=== PATIENT | female | born 1945 | race Caucasian/White ===

== ENCOUNTER 2021-04-09 05:53 | Observation (INO) | payer OTHER ==
[2021-04-07 12:18] LABS: Absolute Lymphocytes (CBC) 1.9 K/uL (0.7-4.9); Hematocrit 42.7 % (36.0-45.0); MPV 7.8 fL (7.6-11.3); RBC Red Blood Cell Count 4.76 M/uL (3.86-4.86)
--- NOTE | 2021-04-07 12:24 | RAD REPORT ---
EXAM DESCRIPTION: RAD - Chest Pa And Lat (2 Views) - 04/07/2021 12:18 pm CLINICAL HISTORY: Pre Op knee arthroplasty Chest pain. COMPARISON: Chest Pa And Lat (2 Views) dated 04/07/2017; CHEST SINGLE VIEW dated 08/10/2011; CHEST PA AND LAT 2 VIEW dated 04/14/2011; CHEST SINGLE VIEW dated 01/19/2003 FINDINGS: The lungs are emphysematous but clear. The heart is normal in size. No displaced fractures . IMPRESSION: Mild diffuse COPD.
[2021-04-07 12:31] LABS: Protime INR 0.98
[2021-04-07 12:32] LABS: Bilirubin Total 0.9 mg/dL (0.2-1.0); Potassium 4.6 mmol/L (3.5-5.1); Protein, Total 7.1 g/dL (6.4-8.2)
[2021-04-07 12:34] LABS: Urine Appearance CLEAR (Clear); Urine Bilirubin NEGATIVE (Negative); Urine Blood NEGATIVE (Negative); Urine Color DK YELLOW (Yellow); Urine Glucose NEGATIVE (Negative); Urine Protein NEGATIVE (Negative); Urine pH 6.5 (5.0-7.0)
[2021-04-07 12:35] LABS: Urine Microscopic Reflex NO UMIC
[2021-04-09] MEDS ORDERED: Ringers Lactate 1,000 ML IV ONE ×2 (06:23→08:20)
[2021-04-09] MEDS ORDERED: CELECOXIB 100 MG CAPSULE ONE (06:24)
[2021-04-09] MEDS ORDERED: GABAPENTIN 100 MG CAP ONE (06:24)
[2021-04-09] MEDS ORDERED: ACETAMINOPHEN 500 MG TAB ONE (06:25)
[2021-04-09] MEDS ORDERED: Oxycodone HCl/Acetaminophen 1 TAB TAB ONE (06:25)
[2021-04-09] MEDS ORDERED: CEFAZOLIN/SWI 2gm 2 GM/20 ML SYR ONE (06:26)
[2021-04-09] MEDS ORDERED: NS 0.9% VIAL 20 ML ONE (06:44)
[2021-04-09] MEDS ORDERED: BUPIVACAINE 0.25% PF 30 ML VIAL ONE (06:45)
[2021-04-09] MEDS ORDERED: MIDAZOLAM HCL 2 MG/2 ML INJ ONE (06:45)
[2021-04-09] MEDS ORDERED: dexAMETHasone 10 MG/ML VIAL ONE ×2 (06:45→08:13)
[2021-04-09] MEDS ORDERED: FENTANYL CITR 100 MCG/2 ML ONE (06:45)
[2021-04-09] MEDS ORDERED: SCOPOLAMINE HYDROBROMIDE PATCH TD ONE (06:50)
[2021-04-09] MEDS ORDERED: HYDROMORPHONE HCL 1 MG/ML INJ ONE (07:47)
[2021-04-09] MEDS ORDERED: propofoL 200 MG/20 ML VIAL IV ONE ×3 (07:50→09:13)
[2021-04-09] MEDS ORDERED: LIDOCAINE 2% MPF 5 ML VIAL ONE (07:50)
[2021-04-09] MEDS ORDERED: ROCURONIUM 50 MG/5 ML VIAL IV ONE (07:50)
[2021-04-09] MEDS ORDERED: TRANEXAMIC ACID 1,000 MG in NA CHLORIDE 0.9% 50 ML IV ONE (08:00)
[2021-04-09] MEDS ORDERED: ONDANSETRON 4 MG/2 ML VIAL ONE (08:13)
[2021-04-09] MEDS ORDERED: KETAMINE HCL 500 MG/5 ML VIAL ONE (08:13)
[2021-04-09] MEDS ORDERED: KETOROLAC 30 MG/ML INJ ONE (08:13)
--- NOTE | 2021-04-09 09:48 | P.BOP ---
Preoperative diagnosis: right knee arthritis Postoperative diagnosis: same Primary procedure: right total knee arthoplasty Estimated blood loss: 100 Anesthesia: General Transferred to: Recovery Room Condition: Good
[2021-04-09] MEDS ORDERED: MORPHINE/NS PCA 50 MG/50 ML PCA.SYRING IV PRN (09:51)
[2021-04-09] MEDS ORDERED: DOCUSATE NA 100 MG CAP PO PRN (09:51)
[2021-04-09] MEDS ORDERED: ONDANSETRON 4 MG/2 ML VIAL IV PRN (09:51)
[2021-04-09] MEDS: FLUMAZENIL 0.1 MG/ML (5 mL VIAL) IV ONE ×2 (10:25→10:32)
[2021-04-09] MEDS: NALOXONE 0.4 MG/ML VIAL IV PRN ×2 (11:17→11:37)
--- NOTE | 2021-04-09 11:28 | OP ---
Date of Procedure: 04/09/2021 Surgeon: Cleveland Mcmanus MD Preoperative Diagnosis: Right knee arthritis. Postoperative Diagnosis: Right knee arthritis. Procedure: Right total knee arthroplasty using [employer] total knee system from [employer]. Estimated Blood Loss: 100 mL. Complications: No complications. Specimens: No pathology specimens. Indications For Operation: Ms. Patel is a 75-year-old female, came to see me with tremendous pain related to her right knee. She had an MRI, which demonstrated a probable meniscal tear and had mecha nical symptoms. She has therefore underwent an arthroscopy. At the time of arthroscopy, she was fou nd to have exposed bone from degenerative changes and despite meniscal debridement, she unfortunately continued to have pain and problems. We attempted to have her rehab this on her own; however, unfor tunately, she had continued pain. She then underwent a corticosteroid injection as well as physical therapy and unfortunately continued to complain of debilitating knee pain. The risks, benefits, and alternatives to total knee arthroplasty had been discussed to her as we do have visualization arthros copically of arthritis, also further conservative care was not helpful. She says she understands niharika nicole as presented and wishes to proceed. Description Of Procedure: The patient was taken to the operating room and placed in supine position. General anesthesia was obtained by staff. Following this, a well-padded tourniquet was placed on t he superior right thigh. Right lower extremity was then prepped and draped in the usual fashion proc shannon. Following this, a standard anterior incision was made carefully through the skin and soft tis sues. Meticulous hemostasis being maintained using Bovie electrocautery. This leads down to the ext ensor mechanism. A standard medial parapatellar arthrotomy was then performed and the patella was th en everted and the knee was bent. The medial and lateral menisci were removed as well as the ACL. T his was followed by placement of an intramedullary alignment guide. Following this, it was then size d to be a size 65, and the remaining femoral cuts were made. The tibial cut was then made. It was t hen trialed with a 10 poly and comes down to full extension. No signs of instability. This was foll owed by resurfacing of the patella using a trial patellar button. The knee was then brought through range of motion, was found to be no subluxation or dislocation of the patella. After this, the trial instruments were removed. The box was cut. The bone plug was placed and tibia was punched, and the bone was prepped for cementation. Following this, the final implants with the exception of the poly ethylene of the tibial implant then placed in the unsupported remit. The cement was removed. It was kept in a position of extension until the cement hardened. After this was brought through range of motion. The patella still lies well and it has good flexion and extension. It does appear to be bal anced. The trial poly was then removed and the final polyethylene was then placed with the locking b ar. It was then brought through a full range of motion, found to have no subluxation or abnormal tra cking of the patella, and it was again irrigated and the extensor mechanism was then repaired using h eavy Ethibond sutures. This was followed by irrigation and closure of the skin using Vicryl followed by abbie. The patient was then placed in a very well-padded sterile dressing, awakened, and taken to recovery room in good condition. There were no complications. /MODL Voice ID: [id number] Report ID: [id number]
[2021-04-09 13:56] VITALS: BMI 31.9
[2021-04-09] MEDS: CEFAZOLIN/SWI 1gm 1 GM/10 ML SYR IV SCH ×2 (14:00→23:36)
[2021-04-09] MEDS ORDERED: MELATONIN 5 MG TABLET PO ONE (23:56)
[2021-04-10] MEDS: HYDROCODONE/APAP 7.5/325 MG TAB PO PRN ×2 (04:24→09:31)
[2021-04-10] MEDS: ENOXAPARIN 30 MG/0.3 ML SQ SCH ×2 (05:19→09:31)
[2021-04-10 08:58] VITALS: O2SAT 98
[2021-04-10 13:01] VITALS: BP 151/63; TEMP 98.8
== END 2021-04-10 15:45 | disposition home health service (06) ==
LOC: OR 05:53 → 2ND 12:59
PROVIDERS: ADMIT Orthopaedic Surgery; ATTEND Orthopaedic Surgery
PROC: 0SRC069 Replacement of Right Knee Joint with Oxidized Zirconium on Polyethylene Synthetic Substitute, Cemented, Open Approach (ICD-10-PCS; principal; 2021-04-09 07:30)
DX: M19.90 Unspecified osteoarthritis, unspecified site (principal); Z20.822 Contact with and (suspected) exposure to COVID-19
CPT/HCPCS: 27447; 93005; 85025; 36415 ×2; 86900; 86850; 85610; 86901; 88305; 88311; 85730; 85018; 85014; 81003; 80053; 71046; 97110; 97116 ×2; 97139; 97161; 94010 ×2; 94660; U0003; J2704 ×3; J2310; J1650 ×2; J2250; J3010; J1100 ×2; J1170; J0690 ×2; J7120 ×2; J2405; G0379; G0378 ×2